=== PATIENT | female | born 1985 | race Caucasian/White ===

== ENCOUNTER 2018-06-01 11:32 | Outpatient (CLI) | payer BC ==
[2018-06-01 12:57] LABS: HGB - HEMOGLOBIN 11.7 g/dL (12.0-16.0); MEAN CORPUSCULAR HEMOGLOBIN 32.1 pg (27.0-31.0); MEAN CORPUSCULAR HGB CONC 34.4 g/dL (32.0-36.0); MEAN CORPUSCULAR VOLUME 93.2 fL (81.0-99.0); MEAN PLATELET VOLUME 7.5 fL (7.9-10.8); RED BLOOD COUNT 3.66 10^6/uL (4.20-5.40); RED CELL DISTRIBUTION WIDTH 12.8 % (12.0-15.0); WHITE BLOOD COUNT 8.4 x10^3/uL (4.8-10.8)
== END 2018-06-01 11:33 | disposition home or self-care (01) ==
LOC: LAB 11:32
PROVIDERS: ATTEND Nurse Practitioner Obstetrics & Gynecology
DX: Z36.9 Encounter for antenatal screening, unspecified (principal)
CPT/HCPCS: 36415; 82950; 85027; 86850

== ENCOUNTER 2018-06-08 07:56 | Outpatient (CLI) | payer BC | END 2018-06-08 07:57 | disposition home or self-care (01) | LOC: LAB 07:56 | PROVIDERS: ATTEND Nurse Practitioner Obstetrics & Gynecology | DX: O99.810 Abnormal glucose complicating pregnancy (principal) | CPT/HCPCS: 36415; 82951; 82952 ==

== ENCOUNTER 2018-07-04 08:19 | Outpatient (CLI) | payer BC ==
--- NOTE | 2018-07-09 11:53 | Ultrasound Report ---
Reason: UTERINE SIZE DATE DISCREPANCY,ANTEPARTUM,UNSPECIFI Procedure Date: 07/04/2018 Accession Number: [id number] / [id number] Procedure: US - OB F/U or Repeat CPT Code: FULL RESULT: EXAM: FOLLOW-UP OBSTETRICAL ULTRASOUND EXAM DATE: 07/04/2018 09:36 AM. CLINICAL HISTORY: Uterine size date discrepancy, antepartum. COMPARISON: Prior anatomic screen from [facility] in [place] unavailable. TECHNIQUE: Real-time sonographic evaluation of the fetus performed by the scrap crane operator. Multiple enrollment representative static images were saved for review. DATING: Established EGA 30 weeks 0 days with ISABEL 09/12/2018 based on physician stated. EGA 30 weeks 4 days with ISABEL 09/08/2018 based on the current ultrasound. GENERAL EVALUATION Suarez . Cardiac activity: 154 bpm. movement: Visualized. Presentation: Cephalic. Placenta: Posterior fundal position. Amniotic fluid: Normal. ANGIE 16.6 cm. MVP 6.2 cm. BIOMETRY Bi-Parietal Diameter (BPD): 7.5 cm, 30 weeks 2 days Head Circumference (HC): 28.5 cm, 31 weeks 2 days Abdominal Circumference (AC): 26.4 cm, 30 weeks 4 days Femur Length (FL): 5.7 cm, 30 weeks 0 days Estimated Weight: 1567 g, 52 percentile for 30 weeks 0 days. ANATOMY Previously evaluated/not specifically imaged today. MATERNAL STRUCTURES Normal bilateral ovaries/adnexa. IMPRESSION: 1. Suarez live intrauterine with gestational age 30 weeks 0 days based on physician stated. 2. Estimated weight is within expected limits for assigned dating. EDWIN
== END 2018-07-04 08:20 | disposition home or self-care (01) ==
LOC: DI 08:19
PROVIDERS: ATTEND Registered Nurse
DX: O26.843 Uterine size-date discrepancy, third trimester (principal); Z3A.30 30 weeks gestation of pregnancy
CPT/HCPCS: 76816

== ENCOUNTER 2018-08-10 11:16 | Outpatient (CLI) | payer BC | END 2018-08-10 23:59 | disposition home or self-care (01) | LOC: LAB.R 11:16 | PROVIDERS: ATTEND Nurse Practitioner Obstetrics & Gynecology | DX: Z36.85 Encounter for antenatal screening for Streptococcus B (principal) | CPT/HCPCS: 87081; 87181; 87491; 87591; 87797 ==

== ENCOUNTER 2018-08-13 11:08 | Outpatient (CLI) | payer BC ==
--- NOTE | 2018-08-13 15:24 | Ultrasound Report ---
Reason: HISTORY OF SHOULDER DYSTOCIA Procedure Date: 08/13/2018 Accession Number: [id number] / [id number] Procedure: US - OB F/U or Repeat CPT Code: FULL RESULT: EXAM: FOLLOW-UP OBSTETRICAL ULTRASOUND EXAM DATE: 08/13/2018 12:00 PM. CLINICAL HISTORY: History of shoulder dystocia. Size evaluation. COMPARISON: OB F/U OR REPEAT 07/04/2018 8:43 AM. TECHNIQUE: Real-time sonographic evaluation of the fetus performed by the epic interface analyst. Multiple construction representative static images were saved for review. DATING: Established EGA 35 weeks 5 days with ISABEL 09/12/2018 based on obstetric working data. EGA 36 weeks 3 days with ISABEL 09/07/2018 based on the current ultrasound. GENERAL EVALUATION Suarez . Cardiac activity: 152 bpm. movement: Visualized. Presentation: Cephalic. Placenta: Posterior position. Amniotic fluid: Normal. ANGIE 12.2 cm. MVP 4.2 cm. BIOMETRY Bi-Parietal Diameter (BPD): 8.5 cm, 34 weeks 2 days. Head Circumference (HC): 32 cm, 36 weeks 0 days. Abdominal Circumference (AC): 34.0 cm, 37 weeks 6 days. Femur Length (FL): 6.7 cm, 34 weeks 3 days. Estimated Weight: 2949 g, 71st percentile for 35 weeks 5 days. IMPRESSION: 1. Suarez live intrauterine with gestational age 35 weeks 5 days based on obstetric working data. 2. Estimated weight is within expected limits for assigned dating. 3. Normal interval growth compared to date of prior biometry. RADIA
[2018-08-14 12:42] LABS: HEPATITIS C ANTIBODY NON-REACTIVE (NON-REACTIVE)
[2018-08-14 13:51] LABS: HIV AG/AB 4TH GEN NON-REACTIVE (NON-REACTIVE)
[2018-08-15 14:22] LABS: HSV 2 IGG TYPE SPECIFIC AB <0.90 index
== END 2018-08-13 11:09 | disposition home or self-care (01) ==
LOC: DI 11:08
PROVIDERS: ATTEND Registered Nurse
DX: Z36.85 Encounter for antenatal screening for Streptococcus B (principal); Z87.59 Personal history of other complications of pregnancy, childbirth and the puerperium; Z11.3 Encounter for screening for infections with a predominantly sexual mode of transmission
CPT/HCPCS: 36415; 76816; 81599; 86695; 86696; 86803; 87389

== ENCOUNTER 2018-09-11 02:05 | Inpatient (IN) | payer BC ==
[2018-09-11] MEDS ORDERED: CLINDAMYCIN 900 MG/50 ML 50 ML IV SCH (02:22)
[2018-09-11] MEDS ORDERED: LACTATED RINGERS 0 ML IV ONE (02:33)
[2018-09-11] MEDS ORDERED: OXYTOCIN 10 UNIT/ML VIAL ONE (02:33)
[2018-09-11] MEDS ORDERED: OXYTOCIN/SODIUM CHLORIDE 0 ML IV ONE (02:35)
[2018-09-11] MEDS ORDERED: OXYTOCIN 10 UNIT/ML VIAL IM ONE (02:45)
[2018-09-11] MEDS ORDERED: LIDOCAINE 1% 50 ML MDV SUBQ ONE (03:02)
[2018-09-11] MEDS ORDERED: HYDROCORTISONE 1% CREAM 28 GM TUBE PR PRN (03:40)
[2018-09-11] MEDS ORDERED: WITCH HAZEL/GLYCERIN 1 EACH MED..PAD TOP PRN (03:40)
--- NOTE | 2018-09-11 04:01 | DELIVERY NOTE ---
Delivery Note - Labor Labor: positive: Spontaneous - Delivery Method Delivery Method: positive: Spontaneous vaginal delivery - Presentation Presentation: positive: Vertex, KARLEY - left occiput anterior - Nuchal Cord Nuchal Cord: positive: None - Amniotic Fluid Description Amniotic Fluid Description: positive: Clear - Episiotomy Type Episiotomy Type: positive: None - Laceration Laceration: positive: 1st degree - Suture Suture Type: positive: Vicryl Suture Size: positive: 2-0 - Delivery Outcome Delivery Outcome: positive: Livebirth - [place]: positive: Placed in direct skin contact with mother, Stimulated, Warmed, Theodore used [place] sex: positive: Female - Cord Cord: positive: 3 vessels - Placenta Placenta: positive: Intact, Spontaneous - Estimated Blood Loss Estimated Blood Loss (in cc): 250 - Post Delivery Events Post Delivery Events: positive: No post delivery events - Delivery Comments (Free Text/Narrative) Delivery Comments (Free Text/Narrative): Labor: This 33yo @ 39.6wks gestation by LMP presented at 0210 with c/o contractions. Upon arrival her cervix was noted to be 8/100/0 and vertex with bulging BOW. FHR pattern demonstrated Category I pattern throughout labor. Normal labor course. Patient progressed to c/c/+1 and SROM occurred at 0234 and was noted to be a moderate amount of clear fluid. : Normal of viable female infant on 09/11/2018 at 0244. No nuchal cord. Apgars 7/9 at 1 and 5 min respectively. The was placed on maternal abdomen, stimulated, dried, and placed skin to skin. Pitocin administered via IM for hemostasis secondary to arrival at 8cm and inability to insert IV secondarily. The umbilical cord was allowed to stop pulsating at which time it was doubly clamped by CNM and cut by FOB. Cord blood was obtained. Placenta delivered spontaneously and intact at 0250. 3VC. EBL 250mL. Notably, she is GBS positive and was not treated. The uterine fundus is firm and there is no excessive bleeding. The perineum, vagina, and cervix were inspected and found to have first degree perineal laceration which was repaired using a 2-[address]-1 needle in standard fashion, under sterile conditions. initiated. Family bonding well. Both mother and baby were left in stable condition.
[2018-09-11] MEDS: IBUPROFEN 800 MG TABLET PO SCH ×3 (04:04→16:03)
[2018-09-11] MEDS: ACETAMINOPHEN 500 MG TABLET PO SCH ×3 (04:04→20:10)
--- NOTE | 2018-09-11 04:27 | HISTORY & PHYSICAL EXAMINATION ---
Admit History - Visit Reason Visit Reason: Contractions - : 2 Parity: 1 Premature: 0 Ectopic: 0 : 0 Care: positive: [facility] Risk/History: positive: Other Complications This : positive: None Smoking Status: Never smoker - Mother's Labs Mother's Blood Type: positive: O Mother's RH: positive: Positive GBS: positive: Group B Strep Positive Rubella Status: positive: Immune Meds/Allgy - Allergies Allergies/Adverse Reactions: Allergies Allergy/AdvReac Type Severity Reaction Status Date / Time Penicillins Allergy Rash Verified 09/11/18 03:08 Review of Systems - Constitutional Constitutional: denies: Fatigue, Fever, Chills, Malaise - Eyes Eyes: denies: Blurred vision, Spots in vision, Dipolpia - Cardiovascular Cariovascular: denies: Irregular heart rate, Palpitations, Chest pain, Edema - Respiratory Respiratory: denies: Cough, Wheezing, SOB at rest - Gastrointestinal Gastrointestinal: denies: Abdominal pain, Constipation, Diarrhea, Nausea, Vomiting - Integumentary Integumentary: denies: Rash, Pruritis - Neurological Neurological: denies: Headache, Dizziness - Psychiatric Psychiatric: denies: Depression, Anxiety Physical - Abdominal Exam Contraction Intensity: positive: Strong Uterine Resting Tone: positive: Soft - Monitoring Heart Rate Baseline: 150 Strip Review: positive: Category I - Presentation Presentation: positive: Vertex - Vaginal Exam Membranes: positive: Membranes intact Dilation (in cm): 8 Effacement (%): 100 Station: positive: 0 Cervical Position: positive: Anterior - Speculum Exam Speculum Exam Performed: positive: No Plan for Labor - Plan For Labor I expect patient to be DC'd or transferred within 96 hours.: Yes Plan for Labor: HPI: This 33yo @ 39.6wks gestation by Lmp=8.3wk U/S.presented to [facility] with c/o contractions since approximately 1800 on 09/10/2018. She denies VB or Lof and reports +FM. Upon arrival she was noted to be 8/100/0, vertex with bulging BOW. She has been a patient of [facility] since her transfer of care from [facility] . Her has been complicated only by her GBS positive status. She was noted to considered high risk secondary to her hx of shoulder dystocia and 4th degree laceration that complicated her first delivery. Early Hgb A1C secondary to large first baby was WNL. She also had an elevated 1 hour GTT at 28wks - her 3hr GTT was WNL. She was admitted to [facility] for management and ammunition specialist physician notified to be present for delivery secondary to hx. Dating criteria: LMP Initial ultrasound @ 8.3wks c/w LMP Serial exams - agree PMHx: Abnormal pap-Last pap 05/2016 WNL Surgical Hx: [place] teeth removal; 4th degree perineal laceration repair-2015 Family Hx: Breast cancer - maternal grandmother Social Hx: Never smoker. No ETOH or IVDA. Brady. OB Hx: 02/22/2016, 42.0wk VAVD, male, 9lb 11oz labs: O positive; antibody neg Hgb 11.7; Hct 34.1; Plt 340 Hgb A1C 5.4 Rubella immune RPR non-reactive Hep B neg GC/CT neg Urine culture neg 05/11/2016 - pap WNL 1 hour GTT 146 3 hr GTT 88; 151; 129; 98 GBS POSITIVE Immunizations: Influenza 06/01/2018 Tdap 06/22/2018 Ultrasounds: Initial U/S @ 8.3wks - c/w LMP dating 03/06/2018: normal first trimester anatomic survey and nuchal translucency measurement. Size c/w dating. 04/17/2018: Detailed FAS WNL. Posterior placenta, no previa. Normal ANGIE. Size c/w dating. 07/04/2018: growth and ANGIE WNL. 30.0wks gestation. 52%tile. ANGIE WNL. Physical Exam: Normocephalic, atraumatic PERRLA Heart RRR w/o M/G/R Lungs CTAB Abdomen gravid, soft, nontender EFW 3400g Bilateral LE's no edema Assessment: 33yo @ 39.6wks gestation Active labor GBS positive Hx shoulder dystocia and 4th degree laceration Plan: Admit for expectant management Attempt placement of IV for administration of IPAP for GBS positive status Plans unmedicated vaginal delivery on call physician shall be notified for presence at delivery secondary to pt hx Anticipate spontaneous vaginal delivery
[2018-09-11] MEDS ORDERED: LIDOCAINE-MPF 1% 30 ML VIAL ONE (06:13)
[2018-09-11] MEDS: DOCUSATE SODIUM 100 MG CAPSULE PO SCH (09:49)
[2018-09-12] MEDS: IBUPROFEN 800 MG TABLET PO SCH ×4 (05:31→17:24)
[2018-09-12] MEDS: DOCUSATE SODIUM 100 MG CAPSULE PO SCH ×2 (05:43→09:02)
--- NOTE | 2018-09-12 07:35 | PROVIDER PROGRESS NOTE ---
Subjective - Subjective Subjective: S: Bonding well with baby. with little difficulty. Was experiencing some nipple discomfort yesterday but states the optometry doctor evaluated for a tongue tie and baby does not have one. She feels that she may be overly anxious about the discomfort secondary to her poor experiencing with nursing her son initially. She does feel the discomfort has improved and continues to improve, and that she is able to tell the difference between a comfortable latch and a latch that is not correct. Bleeding decreased and is light. Pain minimal and well controlled with oral medications. supportive at the bedside. They are hoping to go home today but since baby was GBS positive and she was untreated, they will likely stay. O: BP 116/63, HR 63, RR 16, T 36.7 Heart RRR w/o M/G/R, lungs CTAB, abdomen soft and nontender, fundus firm at U-2. Bilateral LE's no edema. A: 33yo -->P2 PPD#1 s/p TSVD of viable female 1st degree perineal laceration - intact P: Continue routine care and medications. Plan for discharge home tomorrow. If optometry doctor discharges baby home later this evening, labor RN will call for maternal discharge orders. Pt verbalize understanding and agrees to above plan. She denies further questions or concerns at this time. Objective - Vital Signs/Intake & Output Vital Signs: Vital Signs x48h Temp Pulse Resp BP Pulse Ox 09/12/18 02:00 36.7 C 63 16 116/63 98 Intake & Output: Intake & Output 09/09/18 09/10/18 09/11/18 09/12/18 23:59 23:59 23:59 23:59 Output Total 600 Balance -600
[2018-09-12] MEDS: ACETAMINOPHEN 500 MG TABLET PO SCH ×2 (07:37→11:28)
[2018-09-13] MEDS: ACETAMINOPHEN 500 MG TABLET PO SCH (04:42)
[2018-09-13] MEDS: DOCUSATE SODIUM 100 MG CAPSULE PO SCH (04:42)
[2018-09-13] MEDS: IBUPROFEN 800 MG TABLET PO SCH ×2 (04:45→12:01)
[2018-09-13 08:01] VITALS: BP 120/67
--- NOTE | 2018-09-13 09:03 | PROVIDER PROGRESS NOTE ---
Subjective - Subjective Subjective: S: Bonding well with baby. with little difficulty. Having some continued nipple discomfort but overall feels a significant difference than with her son. Feels that alternate positions has helped. She will have her fill the Rx for all purpose nipple ointment today. bleeding decreased and is light. Minimal perineal discomfort which is relieved by oral pain medications. They are very anxious to go home today and deny further questions or concerns at this time. O: BP 108/66, HR 65, RR 16, T 36.8 Heart RRR w/o M/G/R, lungs CTAB, abdomen soft and nontender with fundus firm at U-1. Bilateral LE's no edema. A: 33yo -->P2 PPD#2 s/p TSVD of viable female 1st degree perineal laceration - intact P: Discharge home today on PPD #2 Reviewed self care and warning s/sx Advised continuation of PNV while . Continue ibuprofen and tylenol OTC for pain management Handwritten Rx for all purpose nipple ointment provided and instructions reviewed. Return in 1 week for support visit and in 3 weeks for routine pp visit or sooner PRN. Pt and verbalized understanding and agree to above plan. They deny further questions or concerns at this time. Objective - Vital Signs/Intake & Output Vital Signs: Vital Signs x48h Temp Pulse Pulse Resp BP Pulse Ox 09/13/18 07:58 36.8 C 67 18 120/67 100 09/13/18 04:33 36.8 C 65 16 108/66 99 Intake & Output: Intake & Output 09/10/18 09/11/18 09/12/18 09/13/18 23:59 23:59 23:59 23:59 Output Total 600 Balance -600
--- NOTE | 2018-09-13 09:09 | Discharge Plan ---
Discharge Plan Disposition: 01 Home, Self Care Condition: Good Diet: Regular Activity Restrictions: No Restrictions Shower Restrictions: No Driving Restrictions: No Weight Bearing: Full Weight No Smoking: If you smoke, Please STOP! Call for help. Follow-up with: Uma Castillo CNM, ARNP [Provider Admit Priv/Credential] -
--- NOTE | 2018-09-13 10:42 | DISCHARGE SUMMARY ---
Physician: JULIA Martins DATE OF ADMISSION: 09/11/2018 DATE OF DISCHARGE: 09/13/2018 DIAGNOSES ON ADMISSION 1. A 33-year-old G2, P1-0-0-1 at 39.6 weeks' gestation by LMP. 2. Active labor. 3. Group B streptococcus positive. 4. History of shoulder dystocia with fourth-degree laceration. DIAGNOSES ON DISCHARGE 1. A 33-year-old G2, P2-0-0-2, status post spontaneous vaginal delivery on 09/11/2018. 2. Normal recovery. BRIEF HISTORY: She is a patient of [facility] who presented on 09/11/2018 with complaints of contractions. The patient was found to be 8 cm dilated, 100% effaced, and 0 station, vertex position with a bulging bag of water. She spontaneously progressed to complete and spontaneous rupture of membranes occurred at 0234 and was noted to be a moderate amount of clear fluid. Normal spontaneous vaginal delivery of a viable female on 09/11/2018 at 0224. No nuchal cord. Apgars 7 and 9 at 1 and 5 minutes, respectively. The perineum, vagina and cervix were inspected and found to have a first-degree perineal laceration, which was repaired using a 2-[address]-1 needle in standard fashion under sterile conditions. She has been doing well in her course. She was ambulating and tolerating a regular diet. She is urinating without difficulty and her lochia is normal. Her pain is well controlled with oral medications. She will be discharged home today on day 2 with prescriptions for all-purpose nipple ointment and instructions to continue taking ibuprofen and Tylenol for pain management [id number]. She intends to followup with myself at [facility] in 1 week for support visit and in 3 weeks for routine visit. She has been given precautions to call if she has any worsening fevers, chills, abdominal pain, increased bleeding or foul- smelling vaginal lochia. TD: 09/13/2018 09:11 KAMALJIT
--- NOTE | 2018-09-13 12:09 | Labor Flowsheet ---
Labor Flowsheet Datetime Report Generated by CPN: 09/13/2018 12:09 Datetime: 09/13/2018 07:55 VITAL SIGNS NBP Sys/Meghann/Mean (mmHg): 120 : 67 : 80 Pulse: 65 SpO2 (%): 100 COMMUNICATION LaborFlag: Labor Datetime: 09/11/2018 02:44 UTERINE ACTIVITY Monitor Mode: External Quality: Strong Resting Tone (Palpate): Relaxed Contraction Comments: poor tracing d/t maternal positioning and movement w/ pushing ASSESSMENT A Monitor Mode: External US Variability: Moderate 6-25 bpm Accelerations: 15X15 Comments: indeterminate baseline d/t spotty tracing w/ maternal pushing PATIENT CARE Patient Position/Activity: Left Tilt
[2018-09-13] MEDS ORDERED: BACITRACIN OINT TOP ONE (12:57)
== END 2018-09-13 11:55 | disposition home or self-care (01) | DRG 807 ==
LOC: WFO 02:05 → FBP 02:06 → WFO 02:13 → FBP 02:14
PROVIDERS: ADMIT Nurse Practitioner Obstetrics & Gynecology; ATTEND Nurse Practitioner Obstetrics & Gynecology
PROC: 10E0XZZ Delivery of Products of Conception, External Approach (ICD-10-PCS; principal; 2018-09-11)
PROC: 0HQ9XZZ Repair Perineum Skin, External Approach (ICD-10-PCS; 2018-09-11)
DX: O99.824 Streptococcus B carrier state complicating childbirth (principal); Z37.0 Single live birth; Z3A.39 39 weeks gestation of pregnancy; O70.0 First degree perineal laceration during delivery; Z87.59 Personal history of other complications of pregnancy, childbirth and the puerperium; Z88.0 Allergy status to penicillin
CPT/HCPCS: 99213; A9270; 85025

== ENCOUNTER 2019-09-20 14:34 | Outpatient (CLI) | payer BC ==
--- NOTE | 2019-09-21 09:57 | Ultrasound Report ---
PROCEDURE: OB First Trimester INDICATIONS: POSITIVE TEST OUTSIDE/PRIOR DATING DATA: Last menstrual period (LMP): 07/31/2019. LMP-based estimated date of delivery (ISABEL): 05/06/2020. First dating scan (date and location): 09/20/2019. Estimated date of delivery (ISABEL) from first dating scan: 05/10/2020. TECHNIQUE: Real-time scanning was performed of the fetus and maternal pelvic organs, with image documentation. COMPARISON: None available FINDINGS: Embryo: There is an intrauterine gestational sac seen, with a pole present, which measures 8 m m, which corresponds to an estimated gestational age of 6 weeks 5 days. cardiac activity is see n, with a measured heart rate of 144 bpm. No significant perigestational/subchorionic hemorrhage ca n be seen. Measurement variability in dating: +/- 4 weeks by LMP, +/- 7 days by mean sac diameter (use before 6 weeks gestation if crown-rump length not able to be measured), +/- 5 days by crown-rump length (6-12 weeks gestation). Maternal organs: Ovaries are unremarkable, with a presumed left corpus luteum cyst incidentally note d. Limited images through the kidneys demonstrate no hydronephrosis. IMPRESSION: Single live intrauterine , without an anatomic abnormality identified. No significant discrepancy is found between the estimated gestational age based upon these images and the estimated gestational age based upon the given date of the last menstrual period. Reviewed by: Iglesia aRjput MD on 09/21/2019 8:56 AM NELA Approved by: Iglesia Rajput MD on 09/21/2019 8:56 AM NELA Station ID: [id number]
== END 2019-09-20 14:35 | disposition home or self-care (01) ==
LOC: DI 14:34
PROVIDERS: ATTEND Advanced Practice Midwife
DX: Z32.01 Encounter for pregnancy test, result positive (principal)
CPT/HCPCS: 76801

== ENCOUNTER 2019-09-30 07:00 | Outpatient (CLI) | payer BC ==
[2019-09-30 15:43] LABS: MUDS CUTOFF CONCENTRATIONS CUTOFF CONC BELOW:
[2019-09-30 15:48] LABS: BILIRUBIN,URINE NEGATIVE (NEGATIVE); GLUCOSE, URINE (UA) NEGATIVE (NEGATIVE); KETONES,URINE (UA) NEGATIVE (NEGATIVE); LEUKOCYTE ESTERASE, URINE NEGATIVE (NEGATIVE); NITRITE,URINE NEGATIVE (NEGATIVE); OCCULT BLOOD,URINE NEGATIVE (NEGATIVE); PROTEIN,URINE NEGATIVE (NEGATIVE); UROBILINOGEN,URINE 0.2 (NORMAL) E.U./dL (NORMAL)
[2019-09-30 15:49] LABS: CLARITY,URINE CLEAR (CLEAR)
[2019-09-30 16:01] LABS: AMPHETAMINE SCREEN,URINE NEGATIVE (NEGATIVE); BENZODIAZEPINES SCREEN, URINE NEGATIVE (NEGATIVE); COCAINE SCREEN URINE NEGATIVE (NEGATIVE); METHADONE SCREEN, URINE NEGATIVE (NEGATIVE); METHAMPHETAMINES SCREEN, URINE NEGATIVE (NEGATIVE); OPIATE SCREEN, URINE NEGATIVE (NEGATIVE); OXYCODONE SCREEN, URINE NEGATIVE (NEGATIVE); PROPOXYPHENE SCREEN, URINE NEGATIVE (NEGATIVE); TRICYCLIC ANTIDEPRESSANT,URINE NEGATIVE (NEGATIVE)
[2019-09-30 21:13] LABS: TRICHOMONAS VAGINALIS DNA NEGATIVE (NEGATIVE)
== END 2019-09-30 23:59 | disposition home or self-care (01) ==
LOC: LAB.R 07:00
PROVIDERS: ATTEND Advanced Practice Midwife
DX: Z34.90 Encounter for supervision of normal pregnancy, unspecified, unspecified trimester (principal); Z36.89 Encounter for other specified antenatal screening
CPT/HCPCS: 80306; 81001; 81003; 87086; 87491; 87591; 87661

== ENCOUNTER 2019-10-29 14:07 | Outpatient (CLI) | payer BC ==
[2019-10-29 14:32] LABS: BASOPHILS % (AUTO) 0.4 %; EOSINOPHILS # (AUTO) 0.1 10^3/uL (0.0-0.7); EOSINOPHILS % (AUTO) 1.8 %; HGB - HEMOGLOBIN 12.4 g/dL (12.0-16.0); LYMPHOCYTES # (AUTO) 1.6 10^3/uL (1.5-3.5); LYMPHOCYTES % (AUTO) 20.7 %; MEAN CORPUSCULAR HEMOGLOBIN 32.1 pg (27.0-31.0); MEAN CORPUSCULAR HGB CONC 34.6 g/dL (32.0-36.0); MEAN CORPUSCULAR VOLUME 92.7 fL (81.0-99.0); MEAN PLATELET VOLUME 10.2 fL (7.9-10.8); MONOCYTES # (AUTO) 0.5 10^3/uL (0.0-1.0); MONOCYTES % (AUTO) 6.4 %; NEUTROPHILS # (AUTO) 5.4 10^3/uL (1.5-6.6); NEUTROPHILS % (AUTO) 70.3 %; PLT - PLATELET COUNT 257 10^3/uL (130-450); RED BLOOD COUNT 3.86 10^6/uL (4.20-5.40); RED CELL DISTRIBUTION WIDTH 12.3 % (12.0-15.0); WHITE BLOOD COUNT 7.7 x10^3/uL (4.8-10.8)
[2019-10-30 08:54] LABS: HIV AG/AB 4TH GEN NON-REACTIVE (NON-REACTIVE)
[2019-10-30 12:08] LABS: HEPATITIS B SURFACE ANTIGEN NON-REACTIVE (NON-REACTIVE)
[2019-10-30 13:03] LABS: HEPATITIS C ANTIBODY NON-REACTIVE (NON-REACTIVE)
== END 2019-10-29 14:08 | disposition home or self-care (01) ==
LOC: LAB 14:07
PROVIDERS: ATTEND Advanced Practice Midwife
DX: Z34.90 Encounter for supervision of normal pregnancy, unspecified, unspecified trimester (principal); Z36.89 Encounter for other specified antenatal screening
CPT/HCPCS: 36415; 81599; 85025; 86592; 86762; 86803; 86850; 86900; 86901; 87340; 87389

== ENCOUNTER 2019-12-17 08:15 | Outpatient (CLI) | payer BC ==
--- NOTE | 2019-12-17 16:51 | Ultrasound Report ---
PROCEDURE: OB Detailed Eval INDICATIONS: SUPERVISION OF NORMAL OUTSIDE/PRIOR DATING DATA: Last menstrual period (LMP): 07/31/2019. LMP-based estimated date of delivery (ISABEL): 05/06/2020. First dating scan (date and location): 09/20/2019. Estimated date of delivery (ISABEL) from first dating scan: 05/10/2020. TECHNIQUE: Real-time scanning was performed of the fetus, with image documentation and biometric measurements. COMPARISON: 09/20/2019 OB ultrasound FINDINGS: General: A single living intrauterine gestation is present. Presentation: Cephalic Placenta: Placental position is posterior, without previa. Amniotic fluid index: 12.7 cm, within normal limits for gestational age. heart rate: 155 beats per minute. Maternal cervical canal: 4.9 cm long; normal length is 2.5 cm or more. biometrics: Biparietal diameter: 4.4 cm 19 weeks 3 days Head circumference: 16.5 cm 19 weeks 2 days Abdominal circumference: 15.67 m 20 weeks 5 days Femur length: 3.0 cm 19 weeks 4 days Estimated gestational age from initial scan: 19 weeks 2 days Composite gestational age from present scan: 19 weeks 5 days Estimated weight and percentile: 330 g, 87th percentile Measurement variability in biometric dating: +/- 10 days from 12-20 weeks gestation, +/- 2 weeks from 20-30 weeks gestation, +/- 3 weeks at 30 weeks gestation or later. Anatomic survey: Neuro: Ventricles are normal at less than 10 mm. Cisterna magna is normal at 3-11 mm. Cerebellum i s normal in size and morphology. Nuchal skin fold: Normal at less than 6 mm between 14 and 20 weeks gestational age. Face: Nose and lips, facial profile are normal. Spine: No evidence for spina bifida. Heart: 4-chambered heart is present, with normal ventricular outflow tracts. Diaphragm: Diaphragm is intact. Stomach: Left-sided stomach is present. Kidneys: No hydronephrosis. Normal is less than 5 mm in 2nd trimester, less than 7 mm in 3rd trimester. Cord: 3 vessel cord has orthotopic insertion. Bladder: Normal in size. Extremities: All 4 extremities are visualized. IMPRESSION: 1. Single live intrauterine with ultrasound gestational age of 19 weeks 5 days compared to 19 weeks 2 days from initial ultrasound. Ultrasound ISABEL is unchanged at 05/10/2020. 2. Anatomy is within normal limits. Reviewed by: Oneida Cook MD on 12/17/2019 4:49 PM PDT Approved by: Oneida Cook MD on 12/17/2019 4:49 PM PDT Station ID: [id number]
== END 2019-12-17 08:16 | disposition home or self-care (01) ==
LOC: DI 08:15
PROVIDERS: ATTEND Advanced Practice Midwife
DX: Z34.90 Encounter for supervision of normal pregnancy, unspecified, unspecified trimester (principal)
CPT/HCPCS: 76811

== ENCOUNTER 2020-01-24 08:56 | Outpatient (CLI) | payer BC ==
[2020-01-24 10:16] LABS: HGB - HEMOGLOBIN 12.1 g/dL (12.0-16.0); MEAN CORPUSCULAR HEMOGLOBIN 32.5 pg (27.0-31.0); MEAN CORPUSCULAR HGB CONC 34.4 g/dL (32.0-36.0); MEAN CORPUSCULAR VOLUME 94.6 fL (81.0-99.0); MEAN PLATELET VOLUME 10.1 fL (7.9-10.8); RED BLOOD COUNT 3.72 10^6/uL (4.20-5.40); RED CELL DISTRIBUTION WIDTH 12.5 % (12.0-15.0); WHITE BLOOD COUNT 8.3 x10^3/uL (4.8-10.8)
== END 2020-01-24 08:57 | disposition home or self-care (01) ==
LOC: LAB 08:56
PROVIDERS: ATTEND Nurse Practitioner Obstetrics & Gynecology
DX: Z36.89 Encounter for other specified antenatal screening (principal)
CPT/HCPCS: 36415; 82950; 85027

== ENCOUNTER 2020-04-08 08:00 | Outpatient (CLI) | payer BC | END 2020-04-08 23:59 | disposition home or self-care (01) | LOC: LAB.N 08:00 | PROVIDERS: ATTEND Advanced Practice Midwife | DX: Z36.85 Encounter for antenatal screening for Streptococcus B (principal) | CPT/HCPCS: 87797 ==

== ENCOUNTER 2020-05-07 15:17 | Inpatient (IN) | payer BC ==
--- NOTE | 2020-05-07 15:41 | HISTORY & PHYSICAL EXAMINATION ---
Admit History - Visit Reason Visit Reason: Contractions - : 3 Parity: 2 Care: positive: [facility] Risk/History: positive: None Complications This : positive: None Smoking Status: Never smoker - Mother's Labs Mother's Blood Type: positive: O Mother's RH: positive: Positive GBS: positive: Group B Step Negative Rubella Status: positive: Immune Meds/Allgy - Allergies Allergies/Adverse Reactions: Allergies Allergy/AdvReac Type Severity Reaction Status Date / Time Penicillins Allergy Rash Verified 09/11/18 03:08 Review of Systems - Constitutional Constitutional: denies: Fatigue, Fever, Chills - Eyes Eyes: denies: Blurred vision, Spots in vision, Dipolpia - Cardiovascular Cariovascular: denies: Chest pain, Edema - Respiratory Respiratory: denies: Cough, SOB at rest - Gastrointestinal Gastrointestinal: denies: Nausea, Vomiting - Integumentary Integumentary: denies: Rash, Pruritis - Neurological Neurological: denies: Headache Physical - Abdominal Exam Contraction Frequency (min/apart): 2-3 Contraction Intensity: positive: Strong Uterine Resting Tone: positive: Soft - Monitoring Heart Rate Baseline: 140 Strip Review: positive: Category I - Presentation Presentation: positive: Vertex - Vaginal Exam Membranes: positive: Membranes intact Dilation (in cm): 7 Effacement (%): 90 Station: positive: -1 Cervical Position: positive: Midposition - Speculum Exam Speculum Exam Performed: positive: No Plan for Labor - Plan For Labor I expect patient to be DC'd or transferred within 96 hours.: Yes Plan for Labor: HPI: This 34yo @ 40.1wks gestation by LMP c/w 6.5wk U/S presents to [facility] in active labor. She reports contractions began this morning at approximately 0900 and have increased in frequency and intensity since that time. She denies vaginal bleeding or leakage of fluid and she reports +FM. She has been a patient of [facility] through the duration of her which has remained uncomplicated. She will be admitted to [facility] for expectant management. Dating criteria: LMP 07/31/2019 Initial ultrasound @ 6.5wks c/w LMP dating Serial exams - agree OB Hx: G1: 02/22/2016; VAVD @ 42wks gestation, epidural. Male, 9lb11.5oz with shoulder dystocia and 4th degree laceration G2: 09/11/2018, @ 39.6wks gestation, unmedicated. Female, [id number] G3: Current PMHx: unremarkable Surgical Hx: [place] tooth extraction Social Hx: Never smoker. No ETOH or IVDA. Brady Family Hx: Breast cancer - MGM; high cholesterol - father Medications: PNV Allergies: Amoxicillin Course: Initial US: SIUP at 6.5 wks c/w LMP for ISABEL of 05/06/2020 O pos/Rubella immune Genetic testing: declines FAS: WNL. ANGIE WNL. Posterior placenta, no previa. Size c/w dating. EFW 87%tile. Glucola 101 (35.2/219) TDAP 02/13/2020 Influenza - 01/24/2020 GBS at 36.0- negative HSV: denies self and partner Breast pump Rx : 02/13/2020 MOD: . Spouse Brady. Sister Rosa dee. P1: Boy. 3.5yo.42wks. Epidural, 3+hrs pushing/forceps/vacuum/SD/4thdeg. 9#11.5oz. P2: Girl. 1yo. 39.6wks. At hospital for 30min total. no epidural. 1st degree. 8#4oz Gender: [place]! ( boy?) to help catch? concerns for lacerations (history) desires best support pp contraception: IUD- Mirena. Last child, will then discuss vasectomy with . PAP: 2017 per patient Physical Exam: Noromcephalic, atraumatic Heart RRR Lungs- no respiratory distress Abdomen gravid, soft, nontender EFW 3700g SVE 7/90/-1, midposition, soft. Vertex. Membranes intact FHR baseline 145, moderate variability + accels, no decels Contractions palpate firm every 2-3 minutes with soft resting tone Bilateral LE's no edema Mood is good. and sand car worker supportive at the bedside Assessment: 34yo @ 40.1wks gestation by LMP c/w 6.5wk U/S Active labor GBS negative Plan: Admit to FBP with routine care Continuous monitoring Expectant management Encouraged ambulation and position changes Nitrous oxide PRN Anticipate
[2020-05-07] MEDS ORDERED: ONDANSETRON 4 MG/2 ML VIAL IVP PRN (16:11)
[2020-05-07] MEDS ORDERED: CARBOPROST TROMETHAMINE 250 MCG/ML AMP IM PRN (16:11)
[2020-05-07] MEDS ORDERED: TRANEXAMIC ACID IN NACL 1,000 MG/100 ML BAG IV PRN (16:11)
[2020-05-07] MEDS ORDERED: miSOPROStoL 200 MCG TABLET BC PRN (16:11)
[2020-05-07] MEDS ORDERED: SODIUM CHLORIDE FLUSH 0.9% 10 ML SYRINGE IVP PRN (16:11)
[2020-05-07] MEDS ORDERED: OXYTOCIN/SODIUM CHLORIDE 500 ML IV PRN (16:11)
[2020-05-07] MEDS ORDERED: LIDOCAINE-MPF 1% 30 ML VIAL ID PRN (16:11)
[2020-05-07] MEDS ORDERED: OXYTOCIN 10 UNIT/ML VIAL IM PRN (16:11)
[2020-05-07] MEDS ORDERED: METHYLERGONOVINE 0.2 MG/ML VIAL IM PRN (16:11)
[2020-05-07 16:20] LABS: BASOPHILS % (AUTO) 0.2 %; EOSINOPHILS # (AUTO) 0.1 10^3/uL (0.0-0.7); EOSINOPHILS % (AUTO) 0.4 %; HGB - HEMOGLOBIN 13.8 g/dL (12.0-16.0); LYMPHOCYTES # (AUTO) 1.3 10^3/uL (1.5-3.5); MEAN CORPUSCULAR HEMOGLOBIN 31.5 pg (27.0-31.0); MEAN CORPUSCULAR HGB CONC 33.3 g/dL (32.0-36.0); MEAN CORPUSCULAR VOLUME 94.5 fL (81.0-99.0); MEAN PLATELET VOLUME 11.6 fL (7.9-10.8); MONOCYTES # (AUTO) 0.8 10^3/uL (0.0-1.0); MONOCYTES % (AUTO) 5.6 %; NEUTROPHILS # (AUTO) 11.1 10^3/uL (1.5-6.6); NEUTROPHILS % (AUTO) 83.2 %; PLT - PLATELET COUNT 234 10^3/uL (130-450); RED BLOOD COUNT 4.38 10^6/uL (4.20-5.40); RED CELL DISTRIBUTION WIDTH 12.6 % (12.0-15.0); WHITE BLOOD COUNT 13.3 x10^3/uL (4.8-10.8)
[2020-05-07] MEDS ORDERED: miSOPROStoL 100 MCG TABLET ONE (16:32)
[2020-05-07] MEDS ORDERED: LACTATED RINGERS 1,000 ML IV SCH (17:00)
[2020-05-07] MEDS ORDERED: SODIUM CHLORIDE FLUSH 0.9% 10 ML SYRINGE IVP SCH (17:00)
[2020-05-07] MEDS ORDERED: WITCH HAZEL/GLYCERIN 1 PAD TOP PRN (17:48)
[2020-05-07] MEDS ORDERED: HYDROCORTISONE 1% CREAM 28 GM TUBE PR PRN (17:48)
--- NOTE | 2020-05-07 17:58 | DELIVERY NOTE ---
Delivery Note - Labor Labor: positive: Spontaneous - Delivery Method Delivery Method: positive: Spontaneous vaginal delivery - Presentation Presentation: positive: Vertex, KARLEY - left occiput anterior - Nuchal Cord Nuchal Cord: positive: Present, Reduced - Amniotic Fluid Description Amniotic Fluid Description: positive: Clear - Episiotomy Type Episiotomy Type: positive: None - Laceration Laceration: positive: 1st degree, Labial, Vaginal - Suture Suture Type: positive: Vicryl Suture Size: positive: 2-0 - Delivery Outcome Delivery Outcome: positive: Livebirth - [place] : positive: Placed in direct skin contact with mother, Stimulated, Warmed, [place] used sex: positive: Female - Cord Cord: positive: 3 vessels - Placenta Placenta: positive: Intact, Spontaneous - Estimated Blood Loss Estimated Blood Loss (in cc): 200 - Post Delivery Events Post Delivery Events: positive: No post delivery events - Delivery Comments (Free Text/Narrative) Delivery Comments (Free Text/Narrative): Labor: This 34yo @ 40.1wks gestation by LMP c/w 6.5wk U/S presented at 0345 in active labor. Cervix was 7/90/-1 and vertex. FHR pattern demonstrated 145 baseline in a Category I pattern throughout labor. Normal labor course. Patient noted urge to push spontaneously and SVE revealed anterior cervical lip at 1643 and was reduced through contractions. AROM occurred at 1700 and was noted to be a small amount of clear fluid. Pt c/c/+1 at 1707. : Normal of viable female infant on 05/07/2019 @ 1715. Nuchal cord x 1 easily reduced. The was placed on maternal abdomen, stimulated, warmed and placed skin to skin. 's were 8/9 at 1 and 5 min respectively. Pitocin administered via IV for hemostasis. The umbilical cord was allowed to stop pulsating at which time it was doubly clamped by CNM and cut by FOB. 3VC. Cord blood was obtained. Fundal massage and gentle cord traction applied for active management of the third stage. Placenta delivered spontaneously and intact at 1720. EBL 200mL. Fourth stage: Uterine fundus firm and there is no excessive bleeding. The perin eum, vagina, and cervix were inspected and noted to have 1st degree vaginal laceration with extension to right labia. Vaginal examination following repair was done. Tissues well approximated. initiated. Family bonding well. Both mother and baby were left in stable condition.
[2020-05-07] MEDS: IBUPROFEN 800 MG TABLET PO SCH (19:05)
[2020-05-07] MEDS: ACETAMINOPHEN 500 MG TABLET PO SCH (19:05)
[2020-05-07] MEDS: DOCUSATE SODIUM 100 MG CAPSULE PO SCH (21:41)
[2020-05-08] MEDS: IBUPROFEN 800 MG TABLET PO SCH ×2 (03:10→11:09)
[2020-05-08] MEDS: ACETAMINOPHEN 500 MG TABLET PO SCH ×2 (03:10→11:09)
--- NOTE | 2020-05-08 09:50 | PROVIDER PROGRESS NOTE ---
Subjective - Subjective Subjective: FINAL PROGRESS NOTE: S: Bonding well with baby. without difficulty. Pain well controlled with oral medications. Bleeding decreased and is light. She has some varicosities on the inner aspect of her lower leg that are unchanged from . She reports some discomfort in the inner aspect of her left leg. No redness, or swelling noted to affected area. She has been ambulating without difficulty. Denies severe pain and reports it more as a discomfort feels more like a bruise. She has full compression stockings at home that she used intermittently during her third trimester. They desire to be discharge home today at 24hrs . O: BP 117/64, T 36.8, HR 65, RR 16 Heart RRR w/o M/G/R, lungs CTAB, abdomen soft and nontender with fundus firm at U-1, perineum intact, light lochia rubra, bilateral LE's no edema. Mild varicose veins to inner aspect of left lower leg. No redness or edema noted to left leg or thigh and pt reports mild tenderness to described area. A: 34yo -->P3 PPD#1 s/p TSVD of viable female infant Left LE varicose veins- DVT highly unlikely given physical exam, pt hx and symptoms. P: Reviewed pp self care and warning s/sx and when to present. Advised regular wearing of full length compression stocking x 1 week minimum and closely reviewed warning s/sx for DVT. Advised continuation of PNV while . Encouraged continuation of ibuprofen and tylenol OTC PRN pain. F/u in 1 week for routine pp visit or sooner PRN. Pt verbalized understanding and agrees to above plan. She denies further questions or concerns at this time. Objective - Vital Signs/Intake & Output Vital Signs: Vital Signs x48h Temp Pulse Pulse Resp BP Pulse Ox 05/08/20 09:00 36.8 C 65 16 117/64 98 05/08/20 03:15 37.1 C 53 L 18 118/69 99 Intake & Output: Intake & Output 05/05/20 05/06/20 05/07/20 05/08/20 23:59 23:59 23:59 23:59 Intake Total 300 Output Total 950 Balance -650 - Lab Results Fish Bones: 05/07/20 15:55 Other Labs: Lab Results x24hrs 05/07/20 05/07/20 Range/Units 20:12 15:55 WBC 13.3 H (4.8-10.8) x10^3/uL RBC 4.38 (4.20-5.40) 10^6/uL Hgb 13.8 (12.0-16.0) g/dL Hct 41.4 (37.0-47.0) % MCV 94.5 (81.0-99.0) fL MCH 31.5 H (27.0-31.0) pg MCHC 33.3 (32.0-36.0) g/dL RDW 12.6 (12.0-15.0) % Plt Count 234 (130-450) 10^3/uL MPV 11.6 H (7.9-10.8) fL Neut # (Auto) 11.1 H (1.5-6.6) 10^3/uL Lymph # (Auto) 1.3 L (1.5-3.5) 10^3/uL [place] # (Auto) 0.8 (0.0-1.0) 10^3/uL Eos # (Auto) 0.1 (0.0-0.7) 10^3/uL Baso # (Auto) 0.0 (0.0-0.1) 10^3/uL Absolute Nucleated RBC 0.00 x10^3/uL Nucleated RBC % 0.0 /100WBC Blood Type O POSITIVE Antibody Screen NEGATIVE
--- NOTE | 2020-05-08 10:08 | Discharge Plan ---
Discharge Plan Problem Reviewed?: Yes Disposition: Home, Self Care Condition: Good Diet: Regular Activity Restrictions: No Restrictions Shower Restrictions: No Driving Restrictions: No Weight Bearing: Full Weight No Smoking: If you smoke, Please STOP! Call for help. Follow-up with: Uma Castillo CNM, ARNP [Provider Admit Priv/Credential] -
--- NOTE | 2020-05-08 10:48 | DISCHARGE SUMMARY ---
Physician: JULIA Martins DATE OF ADMISSION: 05/07/2020 DATE OF DISCHARGE: 05/08/2020 DIAGNOSES ON ADMISSION: 1. A 34-year-old G3, P2-0-0-2 at 40.1 weeks' gestation. 2. Active labor. 3. Group B Streptococcus negative. DIAGNOSES ON DISCHARGE: 1. A 34-year-old G3, P3-0-0-3, status post spontaneous vaginal delivery on 05/07/2020. 2. . 3. Normal recovery. HISTORY OF PRESENT ILLNESS: She is a patient of [facility], who presented on 05/07/2020, with complaints of contractions. The patient was found to contract every 2-3 minutes and her cervix was 7 cm dilated, 90% effaced, -1 station in vertex position. She spontaneously progressed to deliver a viable female infant on 05/07/2020, at 1715. Apgars were 8 and 9 at 1 and 5 minutes respectively. EBL 200 mL. The patient had a first-degree vaginal laceration that was repaired with 2-0 Vicryl in usual fashion under sterile conditions. She has been doing well in her course. She is ambulating and tolerating a regular diet. She is urinating without difficulty and her lochia is normal. Her pain is well controlled with oral medications. She is having some tenderness in the inner aspect of her left thigh. This seems likely to be muscular or an extension of her varicose veins in her left leg, which she has been dealing throughout the duration of her . She has been given strict precautions regarding warning signs and symptoms of deep vein thrombosis- given symptoms and physician exam this seems very unlikely. She was encouraged to wear her full length compression stockings for a minimum of 1 week and followup as needed. She will be discharged home today on day #1 with instructions to continue her vitamin while , and continue taking ibuprofen and Tylenol [id number] as needed for pain management. She intends to followup with myself at [facility] [place] in 1 week for routine visit or sooner if needed. She has been given precautions to call if she has any worsening fevers, chills, abdominal pain, increased bleeding or foul-smelling vaginal lochia. TD: 05/08/2020 10:15 MTDBill
[2020-05-08] MEDS: DOCUSATE SODIUM 100 MG CAPSULE PO SCH (11:09)
[2020-05-08 16:44] VITALS: BP 117/67
--- NOTE | 2020-05-08 18:17 | Labor Flowsheet ---
Labor Flowsheet Datetime Report Generated by CPN: 05/08/2020 18:17 Datetime: 05/08/2020 16:27 VITAL SIGNS NBP Sys/Meghann/Mean (mmHg): 117 : 67 : 77 Pulse: 66 Datetime: 05/08/2020 09:04 SpO2 (%): 98 Datetime: 05/07/2020 19:14 Stage of : Recovery Respirations: 18 PAIN Pain Scale: 1 Pain Presence: Intermittent Pain Type: Cramping Pain Location: Abdomen Pain Goal: 3 Pain Relief Measures: Pain Medication Given Pain Assessment Comments: Tylenol and Ibuprofen given earlier; effective for pain mgmt per pt. Datetime: 05/07/2020 18:13 Temperature (C): 37.1 Temperature Route: Oral Datetime: 05/07/2020 17:15 UTERINE ACTIVITY Monitor Mode: External Frequency (min): 3-5 Quality: Strong Duration (sec): 50-70 Pattern: Normal: <= 5 Contractions in 10 Minutes Resting Tone (Palpate): Relaxed Contraction Comments: pushimg with ctx FHR Baseline Rate : 145 Comments: interuppted strip, pt pushing Datetime: 05/07/2020 17:08 Station: 1 Exam by: tee Datetime: 05/07/2020 17:07 VAGINAL EXAM Dilatation (cm): 10.0 Patient Position/Activity: Right Lateral Datetime: 05/07/2020 17:03 Membrane Status: Ruptured Membranes Rupture Method: Artificial Amniotic Fluid Color: Clear Amniotic Fluid Amount: Small Datetime: 05/07/2020 16:58 ASSESSMENT A Monitor Mode: Telemetry FHR Baseline Changes: No Baseline Change Variability: Moderate 6-25 bpm Accelerations: 15X15 Decelerations: None Category: Category I PATIENT CARE Oxygen Method: Room Air Datetime: 05/07/2020 16:46 STAGE 2 Pushing: Urge to Push Stage 2 Comments: anterior lip being held back by lorraine oliveira Datetime: 05/07/2020 16:43 Effacement (%): 100 Datetime: 05/07/2020 16:21 Patient Care Comments: in bed. tee at bedside
== END 2020-05-08 18:14 | disposition home or self-care (01) | DRG 807 ==
LOC: WFO 15:17 → FBP 15:19 → WFO 16:10 → FBP 16:11
PROVIDERS: ADMIT Nurse Practitioner Obstetrics & Gynecology; ATTEND Nurse Practitioner Obstetrics & Gynecology
PROC: 10907ZC Drainage of Amniotic Fluid, Therapeutic from Products of Conception, Via Natural or Artificial Opening (ICD-10-PCS; principal; 2020-05-07)
PROC: 10E0XZZ Delivery of Products of Conception, External Approach (ICD-10-PCS; 2020-05-07)
PROC: 0HQ9XZZ Repair Perineum Skin, External Approach (ICD-10-PCS; 2020-05-07)
DX: O71.4 Obstetric high vaginal laceration alone (principal); Z37.0 Single live birth; Z3A.40 40 weeks gestation of pregnancy; O87.4 Varicose veins of lower extremity in the puerperium
CPT/HCPCS: 85025; 86850; 86900; 86901; 87635; 99213; A9270; J2210

== ENCOUNTER 2022-03-25 09:27 | Outpatient (CLI) | payer BC ==
[2022-03-25 09:36] LABS: BASOPHILS % (AUTO) 0.6 %; EOSINOPHILS # (AUTO) 0.1 10^3/uL (0.0-0.7); HCT - HEMATOCRIT 39.1 % (37.0-47.0); HGB - HEMOGLOBIN 12.6 g/dL (12.0-16.0); LYMPHOCYTES # (AUTO) 1.6 10^3/uL (1.5-3.5); LYMPHOCYTES % (AUTO) 34.6 %; MEAN CORPUSCULAR HEMOGLOBIN 30.9 pg (27.0-31.0); MEAN CORPUSCULAR HGB CONC 32.2 g/dL (32.0-36.0); MEAN CORPUSCULAR VOLUME 95.8 fL (81.0-99.0); MONOCYTES # (AUTO) 0.4 10^3/uL (0.0-1.0); MONOCYTES % (AUTO) 8.4 %; NEUTROPHILS # (AUTO) 2.5 10^3/uL (1.5-6.6); NEUTROPHILS % (AUTO) 53.2 %; PLT - PLATELET COUNT 252 10^3/uL (130-450); RED BLOOD COUNT 4.08 10^6/uL (4.20-5.40); WHITE BLOOD COUNT 4.6 x10^3/uL (4.8-10.8)
[2022-03-25 10:10] LABS: THYROID STIMULATING HORMONE 1.7 uIU/mL (0.34-5.60)
[2022-03-25 10:15] LABS: ALBUMIN 4.4 g/dL (3.2-5.5); ALBUMIN/GLOBULIN RATIO 1.4 (1.0-2.2); ALKALINE PHOSPHATASE 34 IU/L (42-121); ALT ALANINE AMINOTRANSFERASE 19 IU/L (10-60); AST ASPARTATE AMINOTRANSFERASE 18 IU/L (10-42); BILIRUBIN,TOTAL 1.1 mg/dL (0.2-1.0); BUN - BLOOD UREA NITROGEN 11 mg/dL (6-20); CALCIUM 8.9 mg/dL (8.5-10.3); CARBON DIOXIDE - CO2 26 mmol/L (21-32); CHLORIDE 103 mmol/L (101-111); CHOL/HDL RATIO 2.4 (<4.4); CHOLESTEROL 179 mg/dL; CREATININE 0.7 mg/dL (0.4-1.0); GFR - MDRD 95 (>89); GLUCOSE 98 mg/dL (70-100); HDL CHOLESTEROL 76 mg/dL; LDL CHOLESTEROL,CALCULATED 91 mg/dL; LDL/HDL RATIO 1.2 (<4.4); POTASSIUM 4.1 mmol/L (3.5-5.0); SODIUM 138 mmol/L (135-145); TOTAL PROTEIN 7.5 g/dL (6.7-8.2); TRIGLYCERIDES 60 mg/dL; VLDL CHOLESTEROL 12 mg/dL
--- NOTE | 2022-03-25 10:25 | XRAY Report ---
PROCEDURE: Foot 3 View LT INDICATIONS: HEEL PAIN LEFT TECHNIQUE: 3 views of the foot were acquired. COMPARISON: None FINDINGS: Bones: No fractures or dislocations. Small plantar calcaneal spur. No suspicious bony lesions. Soft tissues: No tibiotalar joint effusion. Achilles tendon appears normal. IMPRESSION: Small plantar calcaneal spur. Reviewed by: Jah Hand MD on 03/25/2022 10:23 AM [facility] Approved by: Jah Hand MD on 03/25/2022 10:23 AM [facility] Station ID: [id number]
== END 2022-03-25 09:28 | disposition home or self-care (01) ==
LOC: LAB 09:27
PROVIDERS: ATTEND Physician Assistant
DX: Z13.9 Encounter for screening, unspecified (principal); Z13.220 Encounter for screening for lipoid disorders; Z13.29 Encounter for screening for other suspected endocrine disorder; M79.672 Pain in left foot; M77.32 Calcaneal spur, left foot
CPT/HCPCS: 36415; 80053; 80061; 83721; 84443; 85025

== ENCOUNTER 2023-06-28 12:00 | Outpatient (CLI) | payer BC ==
--- NOTE | 2023-06-28 14:23 | XRAY Report ---
PROCEDURE: Knee 3V LT INDICATIONS: KNEE PAIN, LEFT TECHNIQUE: 3 views of the knee(s) were acquired. COMPARISON: None. FINDINGS: Bones: No fractures or dislocations. No suspicious bony lesions. Soft tissues: No knee joint effusion. No suspicious soft tissue calcifications or masses. IMPRESSION: No acute bony abnormality. Reviewed by: Manolo Tucker MD on 06/28/2023 2:22 PM PDT Approved by: Manolo Tucker MD on 06/28/2023 2:22 PM PDT Station ID: [id number]
== END 2023-06-28 12:15 | disposition home or self-care (01) ==
LOC: DI.N 12:00
PROVIDERS: ATTEND Family Medicine
DX: M25.562 Pain in left knee (principal)